=== PATIENT | male | born 1960 | race Two or more races ===

== ENCOUNTER 2019-10-28 21:51 | Emergency (ER) | payer OTHER ==
[~2019-10-28] VITALS: Ht 167.6 cm; Wt 68.0 kg
[2019-10-28 23:07] LABS: Basophils # (auto) 0 uL; Basophils % (auto) 0.7 % (0.0-2.0); Eosinophils # (auto) 0 uL; Hematocrit 44.6 % (41.0-53.0); Hemoglobin 15.7 g/dL (13.5-17.5); Lymphocytes % (auto) 17.4 % (10.0-50.0); Mean Corpuscular Hemoglobin 31.2 pg (28.0-32.0); Mean Corpuscular Hgb Conc. 35.1 g/dL (32.0-36.0); Mean Corpuscular Volume 88.9 fL (80.0-100.0); Monocytes # (auto) 0.8 uL; Monocytes % (auto) 13.1 % (0.0-12.0); Neutrophils % (auto) 68.8 % (37.0-80.0); Nucleated Red Blood Cells % 0.1 %; Platelet Count (auto) 194 10^3/uL (140-450); Red Blood Cells 5.02 10^6/uL (4.5-5.90); Red Cell Distribution Width 13.7 % (11.8-14.3); White Blood Cell 5.9 10^3/uL (4.4-10.8)
[2019-10-28 23:28] LABS: Albumin 3.5 g/dL (3.4-5.0); BUN/Creatinine Ratio 19.8; Calcium 8.3 mg/dL (8.5-10.1); Potassium 4.1 mmol/L (3.5-5.1)
[2019-10-28 23:30] LABS: Bilirubin, Total 0.4 mg/dL (0.2-1.0); Total Protein 8.1 g/dL (6.4-8.2)
[2019-10-28 23:54] LABS: Urine Bacteria FEW /hpf (None Seen); Urine Blood Negative /uL (Negative); Urine Mucus FEW (None Seen); Urine Specific Gravity 1.024 (1.001-1.035); Urine WBC 1 /hpf (0 - 3)
[2019-10-29] MEDS ORDERED: cefTRIAXone 1GM/50ML D5W 50 ML IV ONE (00:15)
[2019-10-29] MEDS ORDERED: SODIUM CHLORIDE 0.9% 1,000 ML IV ONE (00:15)
[2019-10-29 02:13] VITALS: BP 119/77
== END 2019-10-29 02:12 | disposition home or self-care (01) ==
LOC: ER 21:57
DX: R53.1 Weakness (principal); R05 Cough; R50.9 Fever, unspecified; R11.2 Nausea with vomiting, unspecified; R51 Headache; R09.81 Nasal congestion
CPT/HCPCS: 36415; 71046; 80053; 81001; 83690; 85025; 87804; 96365; 96366; 99284; J0696; J7030